=== PATIENT | male | born 1990 | race Caucasian/White ===

== ENCOUNTER 2018-08-07 11:59 | Emergency (ER) | payer OTHER ==
[2018-08-07 12:04] VITALS: BP 107/56
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
== END 2018-08-07 12:40 | disposition home or self-care (01) ==
DX: T22.212A Burn of second degree of left forearm, initial encounter (principal); X11.8XXA Contact with other hot tap-water, initial encounter; Z87.891 Personal history of nicotine dependence; Y99.0 Civilian activity done for income or pay